=== PATIENT | male | born 2000 | race Two or more races ===

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

== ENCOUNTER 2019-02-03 09:42 | Emergency (ER) | payer SELFPAY ==
[2019-02-03 10:52] LABS: APPEARANCE,URINE CLEAR; BILIRUBIN,URINE NEGATIVE (NEGATIVE); COLOR,URINE YELLOW; GLUCOSE, URINE NEGATIVE (NEGATIVE); KETONES,URINE NEGATIVE (NEGATIVE); LEUKOCYTE ESTERASE,URINE NEGATIVE (NEGATIVE); NITRITE,URINE NEGATIVE (NEGATIVE); PROTEIN,URINE NEGATIVE (NEGATIVE); URINE SPECIFIC GRAVITY 1.018; UROBILINOGEN,URINE NEGATIVE mg/dL (<2.0)
--- NOTE | 2019-02-03 10:56 | ER Document Report ---
HPI - HPI Time Seen by Provider: 02/03/19 10:17 Pain Level: 3 Notes: Patient is a 18-year-old male with no significant past medical history who presents complaining of noticing something white come out of his penis 2 days ago. Patient states that he did have some burning at that point and right-sided back pain that radiated into his groin just prior to that. Patient states that he has not had any symptoms since then. Patient states that 2 months ago he had something similar with the back pain, radiating to the groin, dysuria, blood in his urine, and then later noticing a white come out of his penis. Patient was seen by an urgent care at that time and was told that he may have passed a kidney stone. Patient states that he was researching things online which prompted her to come here for evaluation. Patient was concerned about possible diabetes and infection. Patient states that he has been able to eat and drink without difficulty. He is urinating normally and having normal bowel movements. Last sexual activity was 4 months ago. He has not noticed any discharge or rash. Denies drug allergies. Denies any headache, fever, neck pain, URI, sore throat, chest pain, palpitations, syncope, cough, shortness of breath, wheeze, dyspnea, abdominal pain, nausea/vomiting/diarrhea, urinary retention, back pain, loss of control of bowel or bladder, numbness/tingling, saddle anesthesia, muscle paralysis/weakness, or rash. - ROS Systems Reviewed and Negative: Yes All other systems reviewed and negative - DERM Skin Color: Normal Past Medical History - Social History Smoking Status: Never Smoker Chew tobacco use (# tins/day): No Frequency of alcohol use: None Family History: Reviewed & Not Pertinent Patient has suicidal ideation: No Patient has homicidal ideation: No Renal/ Medical History: Denies: Hx Peritoneal Dialysis Musculoskeletal Medical History: Reports Hx Musculoskeletal Trauma Past Surgical History: Reports: Hx Inguinal Hernia - Immunizations Immunizations up to date: Yes Hx Diphtheria, Pertussis, Tetanus Vaccination: Yes Vertical Provider Document - CONSTITUTIONAL Agree With Documented VS: Yes Notes: PHYSICAL EXAMINATION: GENERAL: Well-appearing, well-nourished and in no acute distress. HEAD: Atraumatic, normocephalic. EYES: Pupils equal round and reactive to light, extraocular movements intact, sclera anicteric, conjunctiva are normal. ENT: Nares patent and without discharge. oropharynx clear without exudates. No tonsilar hypertrophy or erythema. Moist mucous membranes. NECK: Normal range of motion, supple without lymphadenopathy LUNGS: Breath sounds clear to auscultation bilaterally and equal. No wheezes rales or rhonchi. HEART: Regular rate and rhythm without murmurs, rubs, gallops. ABDOMEN: Soft, nontender, nondistended abdomen. No guarding, no rebound. Normal bowel sounds present. No CVA tenderness bilaterally. : Uncircumcised, no urethral discharge, no obvious lymphadenopathy or hernia. No rash, lesion, swelling noted. Nontender to palpation of the penis, scrotum, and testicles. No obvious lumps or masses. Musculoskeletal: FROM to passive/active. Strength 5+/5. Extremities: No cyanosis, clubbing, or edema b/l. Peripheral pulses 2+. Capillary refill less than 3 seconds. NEUROLOGICAL: Normal speech, normal gait. Normal sensory, motor exams PSYCH: Normal mood, normal affect. SKIN: Warm, Dry, normal turgor, no rashes or lesions noted. - INFECTION CONTROL TRAVEL OUTSIDE OF THE [place] IN LAST 30 DAYS: No Course - Re-evaluation Re-evalutation: 02/03/19 11:18 Patient is afebrile, well-hydrated, 18-year-old male who presents with dysuria, resolved, suspect kidney stones based on history and presentation. Vitals are acceptable without significant tachycardia, tachypnea, or hypoxia. PE is otherwise unremarkable. Accu-Chek appropriate. Urinalysis unremarkable. Chlamydia gonorrhea tests are pending and patient declined any pretreatment. Exam was otherwise benign and patient's abdomen is soft and nontender. He is nontoxic-appearing is able to tolerate p.o. without difficulty. Patient has been asymptomatic for the past couple days. No further work-up warranted at this time. Low suspicion/risk for acute appendicitis, bowel obstruction, acute cholecystitis, perforated diverticulitis, incarcerated hernia, pancreatitis, perforated ulcer, peritonitis, sepsis, testicular torsion, or other systemic emergent condition at this time. Patient is aware that his condition can change from initial presentation and he needs to monitor symptoms closely and seek medical attention if any acute changes. Conservative measures otherwise for symptoms. Recheck with PCM in 2-3 days. Consider consult with a urologist. Return to the ED with any worsening/concerning symptoms otherwise as reviewed in discharge. Patient is in agreement. - Vital Signs Vital signs: Temp Pulse Resp BP Pulse Ox 98.2 F 59 L 12 132/72 H 97 02/03/19 09:53 02/03/19 09:53 02/03/19 09:53 02/03/19 09:53 02/03/19 09:53 Discharge - Discharge Clinical Impression: Dysuria Condition: Stable Disposition: HOME, SELF-CARE Additional Instructions: Push fluids (i.e. water) Proper hygenic technique Keep the skin clean Tylenol/ibuprofen as needed Take medications as directed F/u with your PCM in 3-5 days for a recheck Schedule appointment with a urologist for further evaluation and management Return to the ED with any worsening symptoms and/or development of fever, headache, chest pain, palpitations, syncope, shortness of breath, trouble breathing, abdominal pain, n/v/d, blood in stool/urine, loss of control of bowel/bladder, urinary retention, or other worsening symptoms that are concerning to you. Forms: Elevated Blood Pressure Referrals: JOEY ROMO MD [ACTIVE STAFF] - Follow up as needed [facility] [Provider Group] - Follow up as needed
[2019-02-03 12:15] LABS: CHLAM PCR NOT DETECTED (NOT DETECT)
[2019-02-03 12:27] VITALS: BP 113/70
== END 2019-02-03 12:24 | disposition home or self-care (01) ==
LOC: ER 09:42
DX: R30.0 Dysuria (principal); M54.9 Dorsalgia, unspecified; R36.9 Urethral discharge, unspecified
CPT/HCPCS: 81001; 82962; 87491; 87591; 99283